=== PATIENT | female | born 1970 | race Hispanic/Latino ===

== ENCOUNTER 2016-09-02 15:52 | Emergency (ER) | payer OTHER, SELFPAY ==
[2016-09-02] MEDS ORDERED: predniSONE 20 MG TAB ONE (16:14)
--- NOTE | 2016-09-02 16:28 | ERRECORD ---
[facility] EMERGENCY RECORD HPI ASTHMA (16:17 JLOY) CHIEF COMPLAINT: Patient presents for evaluation of asthma, Patient presents for evaluation of cough, Patient presents for evaluation of wheezing, Patient presents for evaluation of Pt with 1 week of cough, wheezing, congestion. Pt with a history of asthma/COPD. Used her albuterol just before coming but almost out. Pt reports she has been on symbacort but lost her inhaler a little while back and without insurance has been unable to refill. HISTORIAN: History provided by patient. LOCATION: No localizing symptoms. QUALITY: Symptoms described as wheezing. TIME COURSE: Symptoms are constant, There has been no change in the patient's symptoms over time. PRECIPITATING FACTORS: Precipitating factors include: upper respiratory infection. ASSOCIATED WITH: No associated chills, No associated fever, Associated with increased inhaler use, Associated with upper respiratory infection, No associated vomiting. EXACERBATED BY: Patient's condition exacerbated by nothing. RELIEVED BY: Patient's condition relieved by inhaler use, Albuterol. ROS (16:19 JLOY) CONSTITUTIONAL: Historian denies chills, denies fever. ENT: Historian reports rhinorrhea, reports sore throat. CARDIOVASCULAR: Historian denies chest pain. RESPIRATORY: Historian reports cough, reports sputum, reports wheezing. GI: Historian denies abdominal pain, reports diarrhea, denies nausea, denies vomiting. slight diarrhea. GENITOURINARY FEMALE: Historian denies dysuria, denies frequency, denies hematuria. MUSCULOSKELETAL: Historian denies arthralgias, denies myalgias. SKIN: Historian denies rash, denies skin changes. NEUROLOGIC: Historian denies headache. PAST MEDICAL HISTORY MEDICAL HISTORY: Flu vaccine not up to date, Tetanus immunization up to date, Pneumococcal vaccine not up to date, Past medical history includes pulmonary disease, asthma, chronic obstructive pulmonary disease, chronic bronchitis, Flu vaccine not up to date, Tetanus immunization up to date, Pneumococcal vaccine not up to date, Past medical history includes endocrine disease, hypothyroidism. (16:00 JPAR) FEMALE SURGICAL HISTORY: Surgical history of cholecystectomy, Surgical history of tonsillectomy. (16:00 JPAR) PSYCHIATRIC HISTORY: Psychiatric history includes, anxiety. 20 years ago. (16:00 JPAR) SOCIAL HISTORY: Patient denies alcohol use, Patient denies drug use, Patient has no smoking history. (16:00 JPAR) &a-1R&a+25V*p+0X*b7811W*c152B*c15G*c2P*p-0X&a-25V&a+1RName: Aishwarya Palmer : F46 MedRec: [id number] AcctNum: [id number] Prepared: Sat Sep 02, 2016 16:26 by Interface Page [address] [facility] EMERGENCY RECORD NOTES: Nursing records reviewed, Agree with nursing records. (16:21 JLOY) KNOWN ALLERGIES No Known Drug Allergies CURRENT MEDICATIONS levothyroxine: TABLET : Strength - 150 mcg : ORAL Patient Dose: 125 mcg Oral once a day. (15:56 JPAR) CeleXA: TABLET : Strength - 20 mg : ORAL Patient Dose: 1 tab(s) Oral once a day. (15:57 JPAR) Singulair: TABLET : Strength - 10 mg : ORAL Patient Dose: 1 tab(s) Oral once a day. (15:57 JPAR) ProAir HFA: HFA AEROSOL WITH ADAPTER (GRAM) : Strength - 90 mcg : INHALATION Patient Dose: 1 puff(s) Inhaler every 4 hours prn. (15:58 JPAR) VITAL SIGNS VITAL SIGNS: Pulse: 115, Resp: 18, Pain: 0, O2 sat: 97, Time: 09/02/2016 15:55. (15:55 JPAR) BP: 142/72, Pulse: 123, Time: 09/02/2016 15:58. (15:58 JPAR) BP: 130/67, Pulse: 108, Resp: 16, Pain: 0, O2 sat: 97, Time: 09/02/2016 16:21. (16:21 JPAR) PHYSICAL EXAM (16:20 JLOY) CONSTITUTIONAL: Vital Signs Reviewed, Respiratory rate normal, Patient appears non toxic, Patient alert and oriented to person, place and time. EYES: Eye exam included findings of eyelids normal to inspection, Pupils equally round and reactive to light, Conjunctiva normal. ENT: Pharynx exam normal, Uvula exam normal, Tonsil exam normal, Mouth exam included findings of, mucous membranes dry. NECK: Neck exam included findings of normal range of motion, Trachea midline, no cervical adenopathy. RESPIRATORY CHEST: Respiratory exam included findings of no respiratory distress, Wheezing present, scattered, Breath sounds otherwise clear, Chest exam included findings of chest movement symmetrical. CARDIOVASCULAR: Cardiovascular exam included findings of heart rate regular rate and rhythm, Heart sounds normal. ABDOMEN FEMALE: Abdominal exam included findings of abdomen nontender, Bowel sounds normal. NEURO: [place] coma scale 15, Neuro exam findings include patient oriented to person, place and time, Speech normal. SKIN: Skin exam included findings of skin warm, dry, and normal in color, no rash. PSYCHIATRIC: Affect, anxious. &a-1R&a+25V*p+0X*t9756M*c152B*c15G*c2P*p-0X&a-25V&a+1RName: Aishwarya Palmer : F46 MedRec: [id number] AcctNum: [id number] Prepared: Sat Sep 02, 2016 16:26 by Interface Page [address] [facility] EMERGENCY RECORD MEDICATION ADMINISTRATION SUMMARY Drug Name: predniSONE oral, Dose Ordered: 60 mg, Route: Oral, Status: Given, Time: 16:16 09/02/2016, Detailed record available in Medication Service section. DOCTOR NOTES (16:21 JL) TEXT: Pt reports 'white coat syndrome' and typically has a rapid HR when seeing the doctor. PROBLEM LIST No recorded problems DIAGNOSIS (16:15 JLOY) FINAL: PRIMARY: UNS ASTHMA W/ACUTE EXACERBATION. PRESCRIPTION predniSONE oral: TABLET : 20 mg : ORAL : Quantity: 40 Unit: mg Route: ORAL Schedule: once a day Dispense: 5 DAYS May substitute. Refills: No Refills . (16:14 JLOY) NOTES: No Refills. (16:14 JLOY) albuterol sulfate inhalation: HFA AEROSOL WITH ADAPTER (GM) : 90 mcg : INHALATION : Quantity: 2 Unit: puff(s) Route: INHALATION Schedule: every 4 hours prn Dispense: 1 May substitute. Refills: No Refills . (16:15 JLOY) NOTES: Please dispense one spacer to be used with every use of the inhaler No Refills. (16:15 JLOY) DISPOSITION PATIENT: Disposition Type: Discharge, Disposition: *Discharge Home. (16:15 CHRISTIANO) Patient left the department. (16:23 WHITNEY) Swan: CHRISTIANO=MD Negro, Idris OLSON=HUMBERTO Mora, Gold &a-1R&a+25V*p+0X*d8294F*c152B*c15G*c2P*p-0X&a-25V&a+1RName: Aishwarya Palmer : F46 MedRec: [id number] AcctNum: [id number] Prepared: Tr Sep 02, 2016 16:26 by Interface Page 3 of 3 pMD MTDD
--- NOTE | 2016-09-02 16:35 | PICIS ---
[facility] EMERGENCY RECORD TRIAGE ([facility] Sep 02, 2016 15:56 JPAR) TRIAGE NOTES: Cough and congestion, 1 week, wheezing. ([facility] Sep 02, 2016 15:56 JPAR) PATIENT: NAME: Aishwarya Palmer, AGE: 46, GENDER: female, : [facility] 1970, TIME OF GREET: SunSep 02, 2016 15:53, PREFERRED LANGUAGE: Slovenian, ETHNICITY: or , ECODE BILLING MAP: [facility], SSN: [id number], Zip Code: [address], KG WEIGHT: [phone], PHONE: , , , PERSON ID: [id number], PCP: Rivera KINGSLEY POLLACHI. ([facility] Sep 02, 2016 15:56 JPAR) COMPLAINT: COUGH,CONGESTION,WHEEZING. ([facility] Sep 02, 2016 15:56 JPAR) ADMISSION: URGENCY: 4 Non Urgent, ADMISSION SOURCE: Home, TRANSPORT: CAR, BED: TRIAGE. ([facility] Sep 02, 2016 15:56 JPAR) ASSESSMENT: Assessment: dry cough and congestion and wheezing not improved with inhaler, Symptoms began 1 week, Symptoms began greater than 1 week ago. (16:00 JPAR) SIRS SCORING: Heart Rate 110-139 (2), Temp range 96.8-101.1 (0), respiratory rate 12-24 (0), Mental Status altered: no (0), Infection or Suspected Infection: No. (16:00 JPAR) TRIAGE SCREENING: Patient denies suicidal ideation, Patient denies presence of domestic violence. (16:00 JPAR) PROVIDERS: TRIAGE NURSE: Gold Mora RN. ([facility] Sep 02, 2016 15:56 JPAR) VITAL SIGNS: Pulse 115, Resp 18, Pain 0, O2 Sat 97, Time 09/02/2016 15:55. (15:55 JPAR) BP 142/72, Pulse 123, Time 09/02/2016 15:58. (15:58 JPAR) PREVIOUS VISIT ALLERGIES: No Known Drug Allergies. ([facility] Sep 02, 2016 15:56 JPAR) No Known Drug Allergies. (16:00 JPAR) KNOWN ALLERGIES No Known Drug Allergies CURRENT MEDICATIONS levothyroxine: TABLET : Strength - 150 mcg : ORAL Patient Dose: 125 mcg Oral once a day. (15:56 JPAR) CeleXA: TABLET : Strength - 20 mg : ORAL Patient Dose: 1 tab(s) Oral once a day. (15:57 JPAR) Singulair: TABLET : Strength - 10 mg : ORAL Patient Dose: 1 tab(s) Oral once a day. (15:57 JPAR) ProAir HFA: HFA AEROSOL WITH ADAPTER (GRAM) : Strength - 90 mcg : INHALATION Patient Dose: 1 puff(s) Inhaler every 4 hours prn. (15:58 JPAR) VITAL SIGNS VITAL SIGNS: Pulse: 115, Resp: 18, Pain: 0, O2 sat: 97, Time: &a-1R&a+25V*p+0X*z2012F*c152B*c15G*c2P*p-0X&a-25V&a+1RName: Aishwarya Palmer : F46 MedRec: [id number] AcctNum: [id number] Prepared: Sat Sep 02, 2016 16:32 by Interface Page 1 of 5 pMD [facility] EMERGENCY RECORD 09/02/2016 15:55. (15:55 JPAR) BP: 142/72, Pulse: 123, Time: 09/02/2016 15:58. (15:58 JPAR) BP: 130/67, Pulse: 108, Resp: 16, Pain: 0, O2 sat: 97, Time: 09/02/2016 16:21. (16:21 JPAR) NURSING ASSESSMENT: RESPIRATORY /CHEST (15:58 JPAR) CONSTITUTIONAL: Patient arrives ambulatory, Gait steady, History obtained from patient, Patient appears comfortable, Patient cooperative, Patient alert, Oriented to person, place and time, Skin warm, Skin dry, Skin normal in color, Mucous membranes pink, Mucous membranes moist, Patient complains of cough and congestion, wheezing. PAIN: Patient rates pain as 0 out of 10. RESPIRATORY/CHEST: Lungs auscultated, Breath sounds with wheezing, anteriorally, posteriorally, to bilateral upper lobes, Respiratory assessment findings include respiratory effort easy, Respirations regular, Conversing normally, Neck and chest exam findings include trachea midline, Chest expansion equal, Chest movement symmetrical, no signs of distress, no retractions noted, no cyanosis, no jugular vein distension, no tenderness to palpation, no crepitus noted, no subcutaneous emphysema noted, no deformity noted, Associated with cough, dry, non-productive, no associated fever, no associated fume exposure. SAFETY: Side rails up, Cart/Stretcher in lowest position, Family at bedside, Call light within reach, Hospital ID band on. NURSING PROCEDURE: DISCHARGE NOTE (16:20 JPAR) DISCHARGE: Patient discharged to home, ambulating without assistance, family driving, accompanied by other family member, Summary of Care printed/ provided, Patient requested and was provided an electronic copy of Discharge Instructions, Transition record given to patient, Discharge instructions given to patient, Simple or moderate discharge teaching performed, Increase water intake, Prescriptions given and instructions on side effects given, Name of prescription(s) given: Albuterol & Prednisone, Medication reconciliation form given, Above person(s) verbalized understanding of discharge instructions and follow-up care, Patient treated and evaluated by physician. BELONGINGS: Belongings and valuables with patient at time of discharge include:, Belongings remain with patient, Valuables remain with patient. SAFETY: Side rails up, Cart/Stretcher in lowest position, Family at bedside, Call light within reach, Hospital ID band on. NURSING PROCEDURE: NURSE NOTES (16:04 JPAR) NURSES NOTES: Notes: Pt admits to not staying hydrated and not drinking enough water, pt given water to hydrating. MEDICATION ADMINISTRATION SUMMARY Drug Name: predniSONE oral, Dose Ordered: 60 mg, Route: Oral, Status: &a-1R&a+25V*p+0X*a4309R*c152B*c15G*c2P*p-0X&a-25V&a+1RName: Aishwarya Palmer : F46 MedRec: [id number] AcctNum: [id number] Prepared: Tr Sep 02, 2016 16:32 by Interface Page 2 of 5 pMD [facility] EMERGENCY RECORD Given, Time: 16:16 09/02/2016, Detailed record available in Medication Service section. MEDICATION SERVICE (16:16 [facility]) predniSONE oral: Order: predniSONE oral (prednisone) - Dose: 60 mg : Oral Ordered by: Idris Tom MD Entered by: Idris Tom MD Sat Sep 02, 2016 16:14 Documented as given by: Gold Mora RN Sat Sep 02, 2016 16:16 Patient, Medication, Dose, Route and Time verified prior to administration. Patient appears Awake and alert- acceptable, Correct patient, time, route, dose and medication confirmed prior to administration, Patient advised of actions and side-effects prior to administration, Allergies confirmed and medications reviewed prior to administration, Patient in position of comfort, Side rails up, Cart in lowest position, Family at bedside, Call light in reach. HPI ASTHMA (16:17 [facility]) CHIEF COMPLAINT: Patient presents for evaluation of asthma, Patient presents for evaluation of cough, Patient presents for evaluation of wheezing, Patient presents for evaluation of Pt with 1 week of cough, wheezing, congestion. Pt with a history of asthma/COPD. Used her albuterol just before coming but almost out. Pt reports she has been on symbacort but lost her inhaler a little while back and without insurance has been unable to refill. HISTORIAN: History provided by patient. LOCATION: No localizing symptoms. QUALITY: Symptoms described as wheezing. TIME COURSE: Symptoms are constant, There has been no change in the patient's symptoms over time. PRECIPITATING FACTORS: Precipitating factors include: upper respiratory infection. ASSOCIATED WITH: No associated chills, No associated fever, Associated with increased inhaler use, Associated with upper respiratory infection, No associated vomiting. EXACERBATED BY: Patient's condition exacerbated by nothing. RELIEVED BY: Patient's condition relieved by inhaler use, Albuterol. ROS (16:19 [facility]) CONSTITUTIONAL: Historian denies chills, denies fever. ENT: Historian reports rhinorrhea, reports sore throat. CARDIOVASCULAR: Historian denies chest pain. RESPIRATORY: Historian reports cough, reports sputum, reports wheezing. GI: Historian denies abdominal pain, reports diarrhea, denies nausea, denies vomiting. slight diarrhea. GENITOURINARY FEMALE: Historian denies dysuria, denies frequency, denies hematuria. MUSCULOSKELETAL: Historian denies arthralgias, denies myalgias. &a-1R&a+25V*p+0X*u7492X*c152B*c15G*c2P*p-0X&a-25V&a+1RName: Aishwarya Palmer : F46 MedRec: [id number] AcctNum: [id number] Prepared: [facility] Sep 02, 2016 16:32 by Interface Page 3 of 5 pMD [facility] EMERGENCY RECORD SKIN: Historian denies rash, denies skin changes. NEUROLOGIC: Historian denies headache. PAST MEDICAL HISTORY MEDICAL HISTORY: Flu vaccine not up to date, Tetanus immunization up to date, Pneumococcal vaccine not up to date, Past medical history includes pulmonary disease, asthma, chronic obstructive pulmonary disease, chronic bronchitis, Flu vaccine not up to date, Tetanus immunization up to date, Pneumococcal vaccine not up to date, Past medical history includes endocrine disease, hypothyroidism. (16:00 JPAR) FEMALE SURGICAL HISTORY: Surgical history of cholecystectomy, Surgical history of tonsillectomy. (16:00 JPAR) PSYCHIATRIC HISTORY: Psychiatric history includes, anxiety. 20 years ago. (16:00 JPAR) SOCIAL HISTORY: Patient denies alcohol use, Patient denies drug use, Patient has no smoking history. (16:00 JPAR) NOTES: Nursing records reviewed, Agree with nursing records. (16:21 JLOY) PHYSICAL EXAM (16:20 JLOY) CONSTITUTIONAL: Vital Signs Reviewed, Respiratory rate normal, Patient appears non toxic, Patient alert and oriented to person, place and time. EYES: Eye exam included findings of eyelids normal to inspection, Pupils equally round and reactive to light, Conjunctiva normal. ENT: Pharynx exam normal, Uvula exam normal, Tonsil exam normal, Mouth exam included findings of, mucous membranes dry. NECK: Neck exam included findings of normal range of motion, Trachea midline, no cervical adenopathy. RESPIRATORY CHEST: Respiratory exam included findings of no respiratory distress, Wheezing present, scattered, Breath sounds otherwise clear, Chest exam included findings of chest movement symmetrical. CARDIOVASCULAR: Cardiovascular exam included findings of heart rate regular rate and rhythm, Heart sounds normal. ABDOMEN FEMALE: Abdominal exam included findings of abdomen nontender, Bowel sounds normal. NEURO: [place] coma scale 15, Neuro exam findings include patient oriented to person, place and time, Speech normal. SKIN: Skin exam included findings of skin warm, dry, and normal in color, no rash. PSYCHIATRIC: Affect, anxious. EVENTS TRANSFER: Triage to Emergency Triage. (Sat Sep 02, 2016 15:56 JPAR) Emergency Triage to Emergency Room -03. (15:58 JPAR) Removed from Emergency Emergency Room -03. (16:23 JPAR) &a-1R&a+25V*p+0X*r9760H*c152B*c15G*c2P*p-0X&a-25V&a+1RName: Aishwarya Palmer : F46 MedRec: [id number] AcctNum: [id number] Prepared: Tr Sep 02, 2016 16:32 by Interface Page 4 of 5 pMD [facility] EMERGENCY RECORD DOCTOR NOTES (16:21 JLOY) TEXT: Pt reports 'white coat syndrome' and typically has a rapid HR when seeing the doctor. PROBLEM LIST No recorded problems DIAGNOSIS (16:15 JLOY) FINAL: PRIMARY: UNS ASTHMA W/ACUTE EXACERBATION. DISPOSITION PATIENT: Disposition Type: Discharge, Disposition: *Discharge Home. (16:15 JLOY) Patient left the department. (16:23 JPAR) INSTRUCTION (16:15 JLOY) DISCHARGE: ASTHMA, ACUTE (ADULT). FOLLOWUP: Rivera KINGSLEY POLLACHI, Internal Medicine, [address] [place] [id number], [phone], Follow up with Primary Care Physician in 3-4 days. PRESCRIPTION predniSONE oral: TABLET : 20 mg : ORAL : Quantity: 40 Unit: mg Route: ORAL Schedule: once a day Dispense: 5 DAYS May substitute. Refills: No Refills . (16:14 JLOY) NOTES: No Refills. (16:14 JLOY) albuterol sulfate inhalation: HFA AEROSOL WITH ADAPTER (GM) : 90 mcg : INHALATION : Quantity: 2 Unit: puff(s) Route: INHALATION Schedule: every 4 hours prn Dispense: 1 May substitute. Refills: No Refills . (16:15 JLOY) NOTES: Please dispense one spacer to be used with every use of the inhaler No Refills. (16:15 JLOY) IMAGING *DISCHARGE INSTRUCTIONS RECEIPT: Image captured from scanner. (16:24 JPAR) *SUPPLY CHARGE SHEET: Image captured from scanner. (16:25 JPAR) ADMIN (16:21 CHRISTIANO) DIGITAL SIGNATURE: MD Tom Joshua. Swan: CHRISTIANO=MD Tom Joshua JPAR=HUMBERTO Mora, Gold &a-1R&a+25V*p+0X*u4928B*c152B*c15G*c2P*p-0X&a-25V&a+1RName: Aishwarya Palmer : F46 MedRec: [id number] AcctNum: [id number] Prepared: [facility] Sep 02, 2016 16:32 by Interface Page 5 of 5 pMD [facility] MEDICATION RECONCILIATION You were seen in the Emergency Department on: SunSep 02, 2016 KNOWN ALLERGIES No Known Drug Allergies MEDICATIONS GIVEN WHILE IN THE EMERGENCY DEPARTMENT predniSONE oral (prednisone) - Dose: 60 milligram(s) : Oral HOME MEDICATIONS CONTINUE PRESCRIBED CeleXA : TABLET : Strength - 20 mg : ORAL Continue as prescribed Patient had been takin tab(s) Oral once a day. levothyroxine : TABLET : Strength - 150 mcg : ORAL Continue as prescribed Patient had been takin mcg Oral once a day. ProAir HFA : HFA AEROSOL WITH ADAPTER (GRAM) : Strength - 90 mcg : INHALATION Continue as prescribed Patient had been takin puff(s) Inhaler every 4 hours prn. Singulair : TABLET : Strength - 10 mg : ORAL Continue as prescribed Patient had been takin tab(s) Oral once a day. PRESCRIPTIONS (2) Printed (2) predniSONE oral : TABLET : 20 mg : ORAL Quantity: 40, Unit: milligram(s), Route: ORAL, Schedule: once a day, Dispense: 5 DAYS &a-1R&a+25V*p+0X*s7023X*c202B*c15G*c2P*p-0X&a-25V&a+1R Name: Aishwarya Palmer : 1970 F46 MedRec: [id number] AcctNum: [id number] Prepared: [facility] Sep 02, 2016 16:32 by Interface pMD MTDD
== END 2016-09-02 16:20 | disposition home or self-care (01) ==
LOC: NAV ERS 15:52
DX: J45.901 Unspecified asthma with (acute) exacerbation (principal); J44.9 Chronic obstructive pulmonary disease, unspecified; E03.9 Hypothyroidism, unspecified; F41.9 Anxiety disorder, unspecified
CPT/HCPCS: 99284; J7506

== ENCOUNTER 2017-04-20 08:35 | Outpatient (CLI) | payer BC ==
[2017-04-20 09:52] LABS: ALT (SGPT) 48 U/L (8-55); AST (SGOT) 49 U/L (5-34); Albumin 3.9 g/dL (3.5-5.0); Alkaline Phosphatase 67 U/L (40-150); Anion Gap 11 mmol/L (10-20); BUN (Urea Nitrogen) 11 mg/dL (7.0-18.7); Bilirubin, Total 1.1 mg/dL (0.2-1.2); Calc. Creatinine Clearance 0 mL/min (70-130); Calcium 9.5 mg/dL (7.8-10.44); Carbon Dioxide 29 mmol/L (22-29); Chloride 102 mmol/L (98-107); Cholesterol 195 mg/dl (< 200 Desired); Estimated GFR-MDRD 81; Globulin 3.4 g/dL (2.4-3.5); Glucose 128 mg/dL (70-105); HDL Cholesterol 28 mg/dL (>60 Neg Risk); LDL Cholesterol, Calculated 127 mg/dL; Protein, Total 7.3 g/dL (6.0-8.3); Sodium 138 mmol/L (136-145); Triglycerides 198 mg/dL (Less than 150)
[2017-04-20 10:13] LABS: Free T4 (Free Thyroxine) 0.74 ng/dL (0.70-1.48)
[2017-04-20 11:22] LABS: Hemoglobin 12.8 g/dL (12.0-16.0); Mean Corpuscular HGB CONC 35.1 g/dL (32.0-36.0); Mean Corpuscular Hemoglobin 38.5 pg (27.0-31.0); Mean Platelet Volume 7.4 fL (7.4-10.4); Platelet Count 268 thou/uL (130-400); RBC Distribution Width 14.7 % (11.5-14.5); Red Blood Cell (RBC) Count 3.33 mill/uL (4.20-5.40); White Blood Cell (WBC) Count 5.2 thou/uL (4.8-10.8)
[2017-04-20 11:24] LABS: Anisocytosis SLIGHT = 6-15 cells (100X) (0-5/hpf); Eosinophils 3 % (0-10); Lymphocytes 30 % (21-51); MDiff Complete? YES; Macrocytosis SLIGHT = 6-15 cells (100X) (0-5/hpf); Monocytes 2 % (0-10); Neutrophil 65 % (42-75); PLT Morphology Comment Appears Adequate
== END 2017-04-20 08:36 | disposition home or self-care (01) ==
LOC: NAV LAB 08:35
PROVIDERS: ATTEND Obstetrics & Gynecology
DX: Z13.220 Encounter for screening for lipoid disorders (principal); R53.83 Other fatigue; R63.5 Abnormal weight gain
CPT/HCPCS: 36415; 80053; 80061; 84439; 84443; 85025

== ENCOUNTER 2017-11-15 18:17 | Emergency (ER) | payer BC ==
--- NOTE | 2017-11-15 20:27 | RAD ---
THREE VIEWS OF THE RIGHT WRIST: 11/15/17 INDICATION; Status post fall with right wrist pain. 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 No acute fracture or subluxation is evident. Carpal alignment is preserved. IMPRESSION: No acute osseous abnormality. POS: MANJU
== END 2017-11-15 19:36 | disposition home or self-care (01) ==
LOC: NAV ERS 18:17
DX: S63.501A Unspecified sprain of right wrist, initial encounter (principal); J45.909 Unspecified asthma, uncomplicated; E03.9 Hypothyroidism, unspecified; F41.9 Anxiety disorder, unspecified; Z79.899 Other long term (current) drug therapy; W01.0XXA Fall on same level from slipping, tripping and stumbling without subsequent striking against object, initial encounter